=== PATIENT | female | born 1990 | race Native Hawaiian/Other Pacific Islander ===

== ENCOUNTER 2020-09-28 07:09 | Inpatient (IN) | payer MEDICAID ==
[2020-09-28] MEDS ORDERED: LACTATED RINGERS 1,000 ML ONE (07:39)
[2020-09-28] MEDS ORDERED: OXYTOCIN DRIP 30,000 MILLIUNITS/500 ML BAG IV ONE (07:39)
[2020-09-28] MEDS ORDERED: OXYTOCIN 10 UNIT/1 ML INJ ONE ×2 (07:40→09:56)
[2020-09-28] MEDS ORDERED: TERBUTALINE 1 MG/1 ML INJ ONE (07:58)
[2020-09-28] MEDS: LACTATED RINGERS 1,000 ML IV SCH ×2 (08:00→09:01)
--- NOTE | 2020-09-28 08:25 | History and Physical Report ---
History of Present Illness Date of examination: 09/28/20 (Contractions) Date of admission: 09/28/20 07:15 Chief complaint: Contractions that started @ 0400 am. History of present illness: EDC Confirmation: 10/07/2020 Gestational Age: 7 2/7 weeks Past History : 3 Term Births: 2 Premature Births: 0 Living Children: 2 Para: 2 Mult. Births: 0 Prev : 0 Aborta: 0 Elect. Ab: 0 Spont. Ab: 0 Ectopics: 0 # 1 Delivery date: 12/31/2012 Weeks Gestation: term labor: no Delivery type: Anesthesia type: epidural Delivery location: [facility] Infant Sex: Female weight: 6-0 Comments: Classical # 2 Delivery date: 11/15/2016 Weeks Gestation: term labor: no Delivery type: Anesthesia type: spinal Delivery location: [facility] Infant Sex: Male weight: 6-9 Comments: Low transverse Past Medical History: Reviewed history and no changes required: Ovarian Cysts Past Surgical History: Reviewed history and no changes required: positive, colon resection 2004 @ 12 y.o. : Classical 2012, low transverse in 2013 Past Medical History Anesthesia Complications: negative Anemia: positive, after colon resection in 2003 Autoimmune Disorder: negative Bleeding Disorder: negative Blood Transfusions: negative Breast Disease: negative Diabetes: negative Heart Disease: negative Hypertension: negative Hepatitis/Liver Disease: negative Kidney Disease/UTI: negative Neurologic/Epilepsy/Migraines: negative Phlebitis/Varicosities: negative Psychiatric: negative Pulmonary Disease/Asthma: negative Thyroid Disease: negative Hospitalizations: positive, Colon resection @ 12 years old Surgery (Non-obstetrician/gynecologist): positive, colon resection 2003 @ 12 y.o. : Classical 2012, low transverse in 2013 Abnormal PAP: negative KAYE Exposure: negative Infertility: negative Uterine Anomaly: negative Uterine Surgery (not C/S): negative Other Gynecologic Problems: negative Family Hx: HTN, DM Social Hx: Stays with FOC, single Infection History Hx of STD: none HIV Risk Eval: low risk Hepatitis B Risk Eval: low risk Personal hx. of genital herpes: no Partner hx. of genital herpes: no Rash, Viral, or Febrile illness since last LMP? no Varicella/Chicken Pox Status: Previous Disease TB Risk: no Genetic History Congenital Heart Defect: Mom: no Dad: no Cesar Disease: Mom: no Dad: no Thalassemia Mom: no Dad: no Neural Tube Defect Mom: no Dad: no Down's Syndrome Mom: no Dad: no Eriberto-Sachs Mom: no Dad: no Sickle Cell Disease/Trait Mom: no Dad: no Hemophilia Mom: no Dad: no Muscular Dystrophy Mom: no Dad: no Cystic Fibrosis Mom: no Dad: no Alpine Chorea Mom: no Dad: no Mental Retardation Mom: no Dad: no Fragile X Mom: no Dad: no Other Genetic/Chromosomal Disorder Mom: no Dad: no Child w/other defect Mom: no Dad: no Enviromental Exposures Xray Exposure: no Medication, drug, or alcohol use since LMP: no Chemical/Other Exposure: no Exposure to Cat Liter: no Hx of Parvovirus (Fifth Disease): no Occupational Exposure to Children: none Active Medications (reviewed today): None Current Allergies (reviewed today): No known allergies Past History Past Medical History: asthma Past Surgical History: colorectal surgery (Colon resection in 2003), section (X2: 2012, 2013) 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: other (Fibroadenoma, ovarian cysts) Social history: no significant social history - Obstetrical History Expected Date of Delivery: 10/07/20 Actual Gestation: 38 Week(s) 5 Day(s) : 3 Para: 2 Hx # Term Pregnancies: 2 Number of Pregnancies: 0 Spontaneous Abortions: 0 Induced : 0 Number of Living Children: 2 Medications and Allergies Allergies Allergy/AdvReac Type Severity Reaction Status Date / Time No Known Allergies Allergy Unverified 06/04/16 18:38 Home Medications Medication Instructions Recorded Confirmed Last Taken Type Docusate Sodium [Colace] 100 mg PO BID PRN #60 capsule 09/28/20 Unknown Rx Ferrous Sulfate [Feosol 325 MG tab] 325 mg PO QDAY #60 tablet 09/28/20 Unknown Rx Ibuprofen [Motrin 800 MG tab] 800 mg PO Q8HR PRN #30 tablet 09/28/20 Unknown Rx oxyCODONE /ACETAMINOPHEN [Percocet 1 tab PO Q4HR #30 tab 09/28/20 Unknown Rx 5/325] Active Meds: Active Medications Citric Acid/Sodium Citrate (Bicitra Oral Liqd 30ml) 30 ml PO ONCE HELENA Stop: 09/28/20 16:00 Famotidine (Famotidine 20 Mg/2 Ml Inj) 20 mg IV ONCE HELENA Stop: 09/28/20 16:00 Lactated Ringer's (Lactated Ringers) 1,000 mls @ 2,250 mls/hr IV PREOP HELENA Stop: 09/29/20 08:42 Oxytocin/Sodium Chloride (Pitocin/Ns 30 Unit/500ml) 30 units in 500 mls @ 0 mls/hr IV TITR HELENA; Protocol Cefazolin Sodium (Ancef/Sterile Water 2 Gm/20 Ml) 2 gm in 20 mls @ 80 mls/hr IV PREOP NR; Protocol Metoclopramide HCl (Metoclopramide 10 Mg/2 Ml Inj) 10 mg IV ONCE ONE Stop: 09/28/20 08:09 Review of Systems All systems: negative - Vital Signs Vital signs: Pt presented to triage because she was having contractions. Cervical exam 9.5/100/0, cervix easily pushed back. Pt was given the option to try and push. Several pushes were attempted and patient then decided that she would like to precede with rpt . Pt prepped for . Consents signed and orders placed. - Physical Exam Breasts: Positive: deferred Cardiovascular: Regular rate Lungs: Positive: Normal air movement Genitourinary (Female): Positive: normal external genitalia, normal perenium Vulva: both: normal Vagina: Positive: normal moisture Extremities: Positive: normal - Obstetrical FHR: category 1 Uterine Contraction Monitor Mode: External Cervical Dilatation: 9.5 (BBOW) Cervical Effacement Percentage: 100 station: 0 Uterine Contraction Pattern: Regular Uterine Tone Measurement Phase: Resting Uterine Contraction Intensity: Moderate Results Result Diagrams: 09/28/20 08:00 All other labs normal. GBS NEGATIVE HBsAg Screen Negative Negative *1 RPR Non Reactive Non Reactive *2 Rubella Antibodies, IgG 1.84 index Immune >0.99 *3 Non-immune <0.90 Equivocal 0.90 - 0.99 Immune >0.99 ABO Grouping A *4 Rh Factor Positive *5 Antibody Screen Negative Negative *6 Tests: (2) HIV Ag/Ab with Reflex (041981) HIV Screen 4th Generation wRfx Non Reactive Non Reactive *31 Tests: (3) HCV Ab w/Rflx to Verification ([id number]) ! HCV Ab <0.1 s/co ratio 0.0-0.9 *32 Tests: (4) Comment: (415999) ! Comment: SPRCS *33 Non reactive HCV antibody screen is consistent with no HCV infection, unless recent infection is suspected or other evidence exists to indicate HCV infection. Assessment and Plan A: 29 y.o. @ term scheduled for rpt found to be in active labor. - Patient Problems (1) lung mass Current Visit: No Status: Acute Plan to address problem: NICU to be in attendance at delivery. (2) Maternal care due to low transverse uterine scar from previous delivery Current Visit: No Status: Acute Plan to address problem: Pt desires rpt with tubal ligation. Admission orders placed. medication orders placed.
[2020-09-28] MEDS ORDERED: fentaNYL 100 MCG/2 ML INJ IV SCH (08:30)
[2020-09-28] MEDS ORDERED: TERBUTALINE 1 MG/1 ML INJ IVP SCH (08:30)
[2020-09-28] MEDS ORDERED: FAMOTIDINE 20 MG/2 ML INJ IV SCH (08:30)
[2020-09-28] MEDS ORDERED: ceFAZolin/Water 2 GM/20 ML 2 GM/20 ML SYRINGE IV NR (08:30)
[2020-09-28] MEDS ORDERED: METOCLOPRAMIDE 10 MG/2 ML INJ IV SCH (08:30)
[2020-09-28] MEDS ORDERED: BICITRA ORAL LIQD 30ML PO SCH (08:30)
[2020-09-28] MEDS ORDERED: fentaNYL 100 MCG/2 ML INJ ONE (08:31)
[2020-09-28 08:54] LABS: Basophils % (Auto) 0.3 % (0.0-1.8); Eosinophils % (Auto) 0.1 % (0.0-4.3); Hemoglobin 9.3 gm/dl (10.1-14.3); Lymphocytes % (Auto) 18.4 % (13.4-35.0); Mean Corpuscular HGB Conc 31 % (30-34); Mean Corpuscular Volume 74 fl (79-97); Monocytes # (Auto) 0.6 K/mm3 (0.0-0.8); Monocytes % (Auto) 5.1 % (0.0-7.3); Platelet Count 210 K/mm3 (140-440); Red Blood Count 4.05 M/mm3 (3.65-5.03); Red Cell Distribution Width 17.7 % (13.2-15.2)
--- NOTE | 2020-09-28 08:56 | Event Note ---
Date: 09/28/20 Pt does not desire JENNA at this time after pushing with no delivery of the baby. Her cervix is 9.5/100/0 at last exam. She does want repeat c/s. All risk, benefits and alternatives were d/w pt and questions were addressed and answered. Pt consented for repeat c/s. Labs are still pending and once available will proceed. NST is CAT 1 tracing the entire time pt has been on labor and delivery.
[2020-09-28] MEDS ORDERED: OXYTOCIN DRIP 30 UNITS/500 ML BAG IV SCH (09:00)
[2020-09-28] MEDS ORDERED: BUPIVACAINE/PF (0.5%) 5 MG/1 ML 30 ML VIAL INFILTRATI ONE (09:41)
[2020-09-28] MEDS ORDERED: ONDANSETRON 4 MG/2 ML INJ ONE ×2 (09:41)
[2020-09-28] MEDS ORDERED: KETOROLAC 30 MG/1 ML INJ ONE (09:41)
[2020-09-28] MEDS ORDERED: PHENYLEPHRINE/NS 1,000 MCG/10 ML SYRINGE (OR USE) IV ONE ×2 (09:41→10:15)
[2020-09-28] MEDS ORDERED: SODIUM CHLORIDE 0.9% IRR 1,500 ML BOTTLE IR ONE (09:46)
[2020-09-28] MEDS ORDERED: WATER FOR IRRIG STERILE 1,500 ML BOTTLE IR ONE (09:46)
[2020-09-28] MEDS ORDERED: dexAMETHasone 20 MG/5 ML VIAL ONE (10:04)
[2020-09-28] MEDS ORDERED: SODIUM CHLORIDE 0.9% 100 ML ONE (10:06)
--- NOTE | 2020-09-28 11:03 | Operative Report ---
Operative Report Operative Report: Date of procedure: 09/28/2020 Pre-operative diagnosis: 38-5/7 weeks gestation Active labor Previous section x2 Declines trial of labor lung mass Desires sterilization Post-operative diagnosis: Same plus right hydrosalpinx Procedure name(s): Repeat low transverse section Via Pfannenstiel skin incision Bilateral tubal ligation via bilateral partial salpingectomy Surgeon: Dr. Rivas Regional Sales Manager: PEDIATRIC PHYSICAL THERAPY ASSISTANT Anesthesia: Spinal EBL: 700 mL Urine output: 300 mL of clear urine out at end of the procedure Fluids: 1 L Findings: Liveborn female infant weight 7 pounds 11 ounces Apgars of 8 and 9 at 1 and 5 minutes Right hydrosalpinx that encompassed the entire right fallopian tube Adhesions of the bowel to the posterior surface of the uterus that was filmy Right ovary was not identified and did not appear to be present Normal left ovary Adhesions of the left fallopian tube to the left adnexa Indications: Patient presented in active labor. Patient was scheduled for section and presented at 9 to 10 cm dilated. Upon pushing several times patient decided she no longer desired a trial of labor and desired to have repeat section with tubal ligation as was scheduled for later this week. All risks benefits and alternatives were discussed with the patient. Consents were signed and placed on the chart. Procedure: Patient was taking to the operating room. Patient was then prepped and draped in sterile fashion after anesthesia was found to be adequate. A low transverse skin incision was made with the scalpel through previous incisional scar and carried down to the underlying layer of fascia with the Bovie. The fascia was then incised in the midline and this incision was extended bilaterally with the Bovie. The superior aspect of the fascia was grasped with Alejandra clamps tented upward and dissected off of the anterior rectus muscles wit h the scalpel. In similar fashion the inferior aspect of the fascia was grasped with Alejandra clamps tented upward and dissected off of the anterior rectus muscles. The rectus muscles were then bluntly divided in the midline. The peritoneum was identified and entered into sharply. The bladder blade was placed. [The Nick retractor was placed.] A lower transverse uterine incision was made with the scalpel and extended bilaterally with the bandage scissors. Artificial rupture of membranes was performed yielding [clear amniotic fluid]. The infant's head was then delivered atraumatically. The anterior shoulder and rest of infant delivered without difficulty. The umbilical cord was clamped x2. The cord was cut. The infant was then placed in sterile bassinet. Cord blood was not collected. the placenta was manually extracted in its entirety. The uterus was exteriorized and cleared of all clots and debris. The uterine incision was closed using 0 Vicryl in a running locking fashion. A second imbricating layer of the same suture was then created. Attention was then turned to the fallopian tubes. The right fallopian tube that contained the hydrosalpinx was first drained first with clear fluid noted to be released from the hydrosalpinx. It was at this point that the tube and the adnexal complex was undermined with Kellys. Transected and suture-ligated. With removal of the fallopian tube on the right side. This was handed off to pathology. Excellent hemostasis was noted. Attention was then turned to the left fallopian tube in which the tube was undermined with Kellys cauterize transected and suture-ligated with excellent hemostasis noted a small portion of the distal end of the left fallopian tube remained in place as it was adherent to the left adnexa. However the mid and proximal portions of the tube were removed in their entirety. Excellent hemostasis was noted. This was done bilaterally The posterior cul-de-sac was copiously irrigated. The uterus was returned to the abdomen. The gutters were also irrigated. The anterior rectus muscles were reapproximated using 3-0 Vicryl. The anterior rectus fascia was reapproximated using 0 Vicryl in a running fashion. The subcuticular fat was reapproximated using 2-0 Vicryl in a running fashion. The skin was reapproximated with a 4-0 Monocryl with a subcuticular stitch.. The patient tolerated the procedure well. Sponge lap and needle counts were all correct x3. Patient was taken to the recovery room awake and in stable condition.
[2020-09-28] MEDS ORDERED: WITCH HAZEL/ GLYCERIN PAD TP PRN (11:30)
[2020-09-28] MEDS ORDERED: HYDROcodone/ACETAMINOPHEN 5-325 MG TAB PO PRN (11:30)
[2020-09-28] MEDS ORDERED: LANOLIN/ZINC/DIMETHICONE (LANSINOH) 7 GM TP PRN (11:30)
[2020-09-28] MEDS ORDERED: NALOXONE 0.4 MG/1 ML INJ IV PRN (11:30)
[2020-09-28] MEDS ORDERED: SIMETHICONE 80 MG CHEW TAB PO PRN (11:30)
--- NOTE | 2020-09-28 11:45 | Anesthesia Day of Surgery ---
Anesthesia Day of Surgery - Day of Surgery Patient Examined: Yes Patient H&P Reviewed: Yes Patient is NPO: Yes Beta Blockers: No Cardiac Clearance: No Pulmonary Clearance: No Jian's Test: N/A
--- NOTE | 2020-09-28 11:46 | Anesthesia Consultation ---
Anesthesia Consult and Med Hx Date of service: 09/28/20 - Airway Anesthetic Teeth Evaluation: Poor ROM Head & Neck: Adequate Mental/Hyoid Distance: Adequate Mallampati Class: Class II Intubation Access Assessment: Probably Good - Pulmonary Exam CTA: Yes - Cardiac Exam Cardiac Exam: RRR - Pre-Operative Health Status ASA Pre-Surgery Classification: ASA2 Proposed Anesthetic Plan: Spinal - Pulmonary Hx Smoking: No Hx Asthma: No Hx Respiratory Symptoms: No SOB: No COPD: No Home Oxygen Therapy: No Hx Pneumonia: No Hx Sleep Apnea: No - Cardiovascular System Hx Hypertension: No Hx Coronary Artery Disease: No Hx Heart Attack/AMI: No Hx Angina: No Hx Percutaneous Transluminal Coronary Angioplasty (PTCA): No Hx Cardia Arrhythmia: No Hx Pacemaker: No Hx Internal Defibrillator: No Hx Valvular Heart Disease: No Hx Heart Murmur: No Hx Peripheral Vascular Disease: No - Central Nervous System Hx Neuromuscular Disorder: No Hx Seizures: No CVA: No Hx Back Pain: No Hx Psychiatric Problems: No - Gastrointestinal Hx Ulcer: No Hx Gastroesophageal Reflux Disease: No - Endocrine Hx Renal Disease: No Hx End Stage Renal Disease: No Hx Cirrhosis: No Hx Liver Disease: No Hx Insulin Dependent Diabetes: No Hx Non-Insulin Dependent Diabetes: No Hx Thyroid Disease: No Hx Hypothyroidism: No Hx Hyperthyroidism: No - Hematic Hx Anemia: No Hx Sickle Cell Disease: No - Other Systems Hx Alcohol Use: No Hx Substance Use: No Hx Cancer: No Hx Obesity: No
--- NOTE | 2020-09-28 11:47 | Progress Note ---
Spinal Anesthesia Block - Spinal Anesthesia Block Start Time: :28 Stop Time: :33 Performed by:: CHACHA SCHAFER Procedure: Patient IDed, H&P reviewed, all questions and concerns were answered, and consent was signed. Timeout was performed at bedside. Patient in sitting position. Sterile prep and drape was performed. [3] ml of 1% lidocaine skin wheal at L[3]- L [4]. Needle introducer advanced. 25 gauge spinal needle advanced. Clear, free flowing CSF. negative blood, negative paresthesia. Spinal dose given. All needles removed. Patient tolerated procedure.
[2020-09-28] MEDS ORDERED: HYDROmorphone 1 MG/1 ML INJ IV PRN (11:48)
[2020-09-28] MEDS ORDERED: ONDANSETRON 4 MG/2 ML INJ IV PRN (11:48)
--- NOTE | 2020-09-28 11:48 | Progress Note ---
Objective - Constitutional Vitals: Vital Signs - 12hr 09/28/20 09/28/20 09/28/20 08:25 08:29 08:44 Temperature 98 F Pulse Rate 102 H 102 H 116 H Respiratory 16 Rate Blood Pressure 113/65 Blood Pressure 113/65 [Left] O2 Sat by Pulse 98 Oximetry 09/28/20 09/28/20 09/28/20 08:49 08:54 08:59 Temperature Pulse Rate 110 H 121 H 106 H Respiratory Rate Blood Pressure Blood Pressure [Left] O2 Sat by Pulse 99 98 97 Oximetry 09/28/20 09/28/20 09/28/20 09:04 09:05 09:09 Temperature Pulse Rate 109 H 115 H 120 H Respiratory Rate Blood Pressure Blood Pressure [Left] O2 Sat by Pulse 95 94 99 Oximetry 09/28/20 09/28/20 09/28/20 09:14 09:19 11:07 Temperature 97.6 F Pulse Rate 115 H 119 H 67 Respiratory 16 Rate Blood Pressure 109/67 Blood Pressure [Left] O2 Sat by Pulse 98 98 99 Oximetry 09/28/20 09/28/20 09/28/20 11:10 11:15 11:20 Temperature Pulse Rate 73 69 69 Respiratory 14 14 14 Rate Blood Pressure 110/70 111/69 105/67 Blood Pressure [Left] O2 Sat by Pulse 99 99 99 Oximetry 09/28/20 11:35 Temperature Pulse Rate 72 Respiratory 14 Rate Blood Pressure 102/59 Blood Pressure [Left] O2 Sat by Pulse 98 Oximetry - Labs CBC & Chem 7: 09/28/20 08:00 Labs: Abnormal lab results 09/28/20 Range/Units 08:00 Hgb 9.3 L (10.1-14.3) gm/dl Hct 30.0 L (30.3-42.9) % MCV 74 L (79-97) fl MCH 23 L (28-32) pg RDW 17.7 H (13.2-15.2) % Seg Neutrophils % 76.1 H (40.0-70.0) % Seg Neutrophils # 8.4 H (1.8-7.7) K/mm3 Regional Anesthesia Block - Regional Anesthesia Block Start Time: 11:01 Stop Time: 11:05 Performed By:: CHACHA SCHAFER Procedure: Patient consented for TAP block for post surgical pain management. Patient identified, monitors placed, and time out performed. TAP identified bilaterally via ultrasound. Skin prepped bilaterally with [chlorhexidine] and [22g stimuplex] needle advanced to the TAP. [Marcaine 0.22% 35ml] injected under ultrasound guidance on the [left] side. [Marcaine 0.22% 35ml] injected under ultrasound guidance on the [right] side. Negative aspiration every 5mL, No change in heart rate or rhythm. Patient tolerated the procedure well. No apparent complications seen.
[2020-09-28] MEDS ORDERED: D5W/LACTATED RINGERS 1,000 ML IV ONE (13:41)
[2020-09-28] MEDS: D5W/LACTATED RINGERS 1,000 ML IV SCH ×2 (13:45→22:29)
[2020-09-28] MEDS: ceFAZolin/NS 1 GM/50 ML 1 GM/50 ML BAG IV SCH (18:19)
[2020-09-28] MEDS: KETOROLAC 30 MG/1 ML INJ IV PRN ×2 (18:44→23:58)
[2020-09-28 23:49] LABS: Hematocrit 22.8 % (30.3-42.9); Hemoglobin 7.2 gm/dl (10.1-14.3)
[2020-09-29] MEDS: ceFAZolin/NS 1 GM/50 ML 1 GM/50 ML BAG IV SCH (00:59)
[2020-09-29] MEDS: KETOROLAC 30 MG/1 ML INJ IV PRN (05:12)
[2020-09-29] MEDS: D5W/LACTATED RINGERS 1,000 ML IV SCH (05:13)
--- NOTE | 2020-09-29 06:15 | Post Anesthesia Evaluation ---
- Post Anesthesia Evaluation Patient Participated: Yes Airway Patent: Yes Nausea/Vomiting: No Temp > 96.8F: Yes Pain Manageable: Yes Adequeate Hydration: Yes Anesthesia Complications: No Block Receding Appropriately: Yes Patient on Ventilator: No
[2020-09-29] MEDS: HYDROcodone/ACETAMINOPHEN 5-325 MG TAB PO PRN ×3 (08:26→23:08)
--- NOTE | 2020-09-29 08:56 | Progress Note ---
Assessment and Plan patient w/o complaints, breast and bottle feeding, lochia scant, fundus firm, incision D&I. VSSAF, H&H 7.2/22.8, recheck tomorrow, pt is asymptomatic at this time. - Patient Problems (1) delivery delivered Current Visit: Yes Status: Acute Plan to address problem: continue postop pathway Advance diet and activity as tolerated. (2) Anemia due to acute blood loss Current Visit: Yes Status: Acute Plan to address problem: Asymptomatic fe supplementation recheck H&H in AM. Subjective - Subjective Date of service: 09/29/20 Principal diagnosis: postop day #1 s/p repeat c/s Patient reports: appetite normal, voiding normally, pain well controlled, flatus, ambulating normally, no dizzy ambulation, no nauseated : doing well, bottle feeding (breast and bottle feeding) Objective - Vital Signs Latest vital signs: Vital Signs Temp Pulse Resp BP BP Pulse Ox 09/29/20 08:31 97.6 F 68 18 98/62 99 09/29/20 08:26 16 09/29/20 04:47 98.0 F 61 18 100/61 98 09/29/20 01:06 98.3 F 71 18 100/56 98 09/28/20 20:24 98.0 F 64 18 112/61 97 09/28/20 16:17 98.0 F 70 20 111/75 98 09/28/20 12:30 97.9 F 71 20 99/53 98 09/28/20 12:05 97.7 F 79 14 99/59 98 09/28/20 11:50 74 14 94/57 98 09/28/20 11:35 72 14 102/59 98 09/28/20 11:20 69 14 105/67 99 09/28/20 11:15 69 14 111/69 99 09/28/20 11:10 73 14 110/70 99 09/28/20 11:07 97.6 F 67 16 109/67 99 09/28/20 09:19 119 H 98 09/28/20 09:14 115 H 98 09/28/20 09:09 120 H 99 09/28/20 09:05 115 H 94 09/28/20 09:04 109 H 95 09/28/20 08:59 106 H 97 09/28/20 08:54 121 H 98 Intake and Output 02/15/21 02/16/21 02/16/21 23:59 07:59 15:59 Intake Total 1770 1081.667 Output Total 2350 950 Balance -580 131.667 Intake: IV 1050 841.667 ANCEF/NS 1 GM/50 ML 1 gm 50 In 50 ml @ 100 mls/hr IV Q8H HELENA Rx#:[id number] D5lr 1,000 ml @ 125 mls/ 1000 841.667 hr IV DIRECT HELENA Rx#: [id number] Oral 240 Intake, Free Water 480 240 Output: Urine 2350 950 Indwelling Catheter 2350 950 Other: Total, Intake Amount 240 Total, Output Amount 800 250 - Exam Breasts: Present: normal, Cardiovascular: Present: Regular rate Lungs: Present: Clear to auscultation, Normal air movement Abdomen: Present: normal appearance, soft. Absent: distention, tenderness Vulva: both: normal Uterus: Present: normal, firm, fundal height at umbilicus Extremities: Present: normal Deep Tendon Reflex Grade: Normal +2 Incision: Present: normal, dry, intact - Labs Labs: Abnormal lab results 09/28/20 09/28/20 Range/Units 08:00 22:53 Hgb 9.3 L 7.2 L (10.1-14.3) gm/dl Hct 30.0 L 22.8 L D (30.3-42.9) % MCV 74 L (79-97) fl MCH 23 L (28-32) pg RDW 17.7 H (13.2-15.2) % Seg Neutrophils % 76.1 H (40.0-70.0) % Seg Neutrophils # 8.4 H (1.8-7.7) K/mm3
[2020-09-29] MEDS ORDERED: DIPHtheria,PERTUSSIS(ACELL),TETANUS VACCINE/PF 0.5 ML VIAL IM ONE (10:00)
[2020-09-29] MEDS: FERROUS SULFATE 325 MG TAB PO SCH ×2 (10:26→22:15)
[2020-09-29] MEDS: IBUPROFEN 800 MG TAB PO PRN (17:39)
[2020-09-30] MEDS: IBUPROFEN 800 MG TAB PO PRN (01:24)
--- NOTE | 2020-09-30 07:07 | Discharge Summary ---
Providers - Providers Date of Admission: 09/28/20 07:15 Date of discharge: 09/30/20 (pt agrees with d/c) Attending physician: YOLI COOPER Primary care physician: YOLI COOPER Hospitalization Reason for admission: active labor, IUP at term Delivery: Procedure: repeat low transverse Episiotomy: none Laceration: none Incision: normal, dry, intact Other procedures: none complications: none Discharge diagnosis: IUP at term delivered Cameron baby: female Hospital course: Pt arrived in active labor Despite advance dilatation pt desired repeat c/s. Uncomplicated repeat section. Pt resting No c/o voiced Desires d/c today VSS FF below umb Lochia scant. H&H 03/04 Pt is asymptomatic RX po iron for d/c Doing well s/p section. P: d/c today with instructions Pt will keep her postop visit as scheduled. Condition at discharge: Good Disposition: DC-01 TO HOME OR SELFCARE - Discharge Diagnoses (1) delivery delivered Status: Acute Comment: RTO 1 week postop care Plan - Discharge Medications Prescriptions: Docusate Sodium [Colace] 100 mg PO BID PRN #60 capsule PRN Reason: Constipation Ferrous Sulfate [Feosol 325 MG tab] 325 mg PO QDAY #60 tablet Ibuprofen [Motrin 800 MG tab] 800 mg PO Q8HR PRN #30 tablet PRN Reason: Pain, Moderate (4-6) oxyCODONE /ACETAMINOPHEN [Percocet 5/325] 1 tab PO Q4HR #30 tab - Provider Discharge Summary Additional instructions: [] Smoking cessation referral if applicable(refer to patient education folder for contact #) [] Refer to [facility]'s [facility] Booklet Call your doctor immediately for: * Fever > 100.5 * Heavy vaginal bleeding ( >1 pad per hour) * Severe persistent headache * Shortness of breath * Reddened, hot, painful area to leg or breast * Drainage or odor from incision. * Keep incision clean and dry at all times and follow doctor's instructions regarding bathing/showering - Follow up plan Follow up: YOLI COOPER MD [Primary Care Provider] - 7 Days
[2020-09-30 07:38] LABS: Hematocrit 18.6 % (30.3-42.9)
[2020-09-30] MEDS ORDERED: SODIUM CHLORIDE 0.9% 500 ML 500 ML IV NR (08:20)
--- NOTE | 2020-09-30 08:23 | Event Note ---
Date: 09/30/20 (H&H this AM 01/29) Consulted with Dr Rivas. Will transfuse 1 unit PRC then draw H&H 1 hour after transfusion. RN notified
[2020-09-30] MEDS ORDERED: SODIUM CHLORIDE 0.9% 500 ML 500 ML IV SCH (09:00)
[2020-09-30] MEDS: FERROUS SULFATE 325 MG TAB PO SCH (09:00)
[2020-09-30] MEDS: HYDROcodone/ACETAMINOPHEN 5-325 MG TAB PO PRN (10:45)
[2020-09-30 15:36] LABS: Hematocrit 22.9 % (30.3-42.9); Hemoglobin 7.4 gm/dl (10.1-14.3)
--- NOTE | 2020-09-30 16:29 | Event Note ---
Date: 09/30/20 Pt h/h with appropriate increase after one unit of blood. Will d/c home at this time.
[2020-09-30 17:08] VITALS: BP 112/72
== END 2020-09-30 18:36 | disposition home or self-care (01) | DRG 765 ==
LOC: TRG 07:09 → LD 07:09 → APU 07:11 → TRG 07:15 → LD 07:15 → APU 07:17 → OB 12:05
PROVIDERS: ADMIT Obstetrics & Gynecology; ATTEND Obstetrics & Gynecology
PROC: 10D00Z1 Extraction of Products of Conception, Low, Open Approach (ICD-10-PCS; principal; 2020-09-28)
PROC: 0UT70ZZ Resection of Bilateral Fallopian Tubes, Open Approach (ICD-10-PCS; 2020-09-28)
PROC: 30233N1 Transfusion of Nonautologous Red Blood Cells into Peripheral Vein, Percutaneous Approach (ICD-10-PCS; 2020-09-28)
PROC: 3E0R3BZ Introduction of Anesthetic Agent into Spinal Canal, Percutaneous Approach (ICD-10-PCS; 2020-09-28)
PROC: 3E0T3BZ Introduction of Anesthetic Agent into Peripheral Nerves and Plexi, Percutaneous Approach (ICD-10-PCS; 2020-09-28)
DX: O34.211 Maternal care for low transverse scar from previous cesarean delivery (principal); D62 Acute posthemorrhagic anemia; Z20.822 Contact with and (suspected) exposure to COVID-19; Z3A.38 38 weeks gestation of pregnancy; Z37.0 Single live birth; Z30.2 Encounter for sterilization
CPT/HCPCS: 36415; 85014; 85018; 85025; 86850; 86900; 86901; 86920; 88302; 88307; G0378; J0690; J1100; J1170; J1885; J2370; J2405; J2590; J2765; J3010; J3105; J3490; J7040; J7120; J7121; P9016; U0003